=== PATIENT | male | born 1965 | race Caucasian/White ===

== ENCOUNTER 2023-07-26 12:31 | Emergency (ER) | payer SELFPAY ==
--- NOTE | ~2023-07-26 | XR_ITS ---
EXAMINATION: XR chest 1V portable Exam Date/Time: 07/26/2023 15:00 CDT HISTORY: cp Comparison: None. RESULT: Lines, tubes, and devices: None. Lungs and pleura: Moderate mid and lower lung interstitial opacities with hazy ill-defined groundgla ss opacity. Cardiomediastinal silhouette: Stable. Other: No acute osseous or upper abdominal finding. IMPRESSION: Moderate interstitial edema. Reviewed, dictated and finalized at location [facility].
[2023-07-26 12:53] VITALS: BP 110/70; PULSE 92; RESP 20; TEMP 36.6; O2SAT 100
--- NOTE | 2023-07-26 12:58 | ECG_ITS ---
Measurements Intervals [place] Rate: 92 P: 35 DC: 161 QRS: -7 QRSD: 92 T: 42 QT: 348 QTc: 430 Interpretive Statements SINUS RHYTHM NO PREVIOUS ECG AVAILABLE FOR COMPARISON Electronically Signed On 07-26-2023 20:24:16 CDT by Shannon Emanuel M.D.
[2023-07-26 15:33] LABS: Basophils Percent Auto 0.2 % (0.2-1.2); Eosinophils Absolute Auto 0.2 K/mm3 (0-0.3); Hematocrit 43.2 % (42.0-52.0); Hemoglobin 13.7 g/dL (14.0-18.0); Immature Granulocyte Absolute 0.05 K/mm3 (0.00-0.031); Immature Granulocyte Percent A 0.6 % (0-0.5); Lymphocytes Absolute Auto 1.99 K/mm3 (0.9-3.2); Lymphocytes Percent Auto 22.6 % (18.3-44.2); Mean Corpuscular HGB Conc 31.7 g/dl (32-36); Mean Corpuscular Hemoglobin 30.6 pg (26-34); Mean Corpuscular Volume 96.4 fl (80-100); Mean Platelet Volume 9.4 fl (7.4-10.4); Monocytes Absolute Auto 0.9 K/mm3 (0.1-0.6); Monocytes Percent Auto 10.7 % (2.6-8.5); Neutrophils Absolute Auto 5.6 K/mm3 (1.3-6.7); Neutrophils Percent Auto 63.9 % (45.5-73.1); Platelet Count Result 294 k/mm3 (150-375); Red Blood Count 4.48 M/mm3 (4.6-6.20); Red Cell Distribution Width 13.2 % (11.5-14.5); White Blood Count 8.8 K/mm3 (4.5-10.0)
[2023-07-26 15:43] LABS: Anion Gap 6 mmol/L (8-16); Blood Urea Nitrogen 12 mg/dL (9-20); Carbon Dioxide 25 mmol/L (22-30); Chloride 106 mmol/L (98-107); Estimated CRCL calculation 121 ml/min; Estimated Glomerular Filt Rate > 60; Ethanol < 10 mg/dL (<10); Glucose 105 mg/dL (65-110); Potassium 3.9 mmol/L (3.4-5.0); Sodium 137 mmol/L (137-145)
[2023-07-26 15:55] LABS: Troponin I < 0.012 ng/mL (0.000-0.034)
[2023-07-26 16:41] VITALS: BP 120/86; PULSE 92; RESP 16; O2SAT 100
--- NOTE | 2023-07-26 17:32 | ED.GENADULT ---
HPI - General Adult General Chief complaint: Alcohol <Di Benavidez MD - Last Filed: 07/26/23 19:04> Stated complaint: lightheaded after librium <Di Benavidez MD - Last Filed: 07/26/23 19:04> Time Seen by Provider: 07/26/23 14:49 <Di Benavidez MD - Last Filed: 07/26/23 19:04> History of Present Illness HPI narrative: Patient sent from [place] where he was being treated for alcohol withdrawal, he has not had a drink in days, he states that before he got sent here they had given him a bunch of pills 1 of which was Librium, and it made him very sleepy. He is endorsing some chest discomfort. He feels like he cannot walk. <Di Benavidez MD - Last Filed: 07/26/23 19:04> Related Data Allergies/adverse reactions: Allergies Allergy/AdvReac Type Severity Reaction Status Date / Time No Known Allergies Allergy Verified 07/26/23 17:19 <Di Benavidez MD - Last Filed: 07/26/23 19:04> Review of Systems Review of Systems: CONST: No fever. HEENT: No sore throat C/V: No chest pain RESP: No cough GI: No nausea or vomiting : No dysuria. M/S: No joint pain. SKIN: No rash. NEURO: Sleepy PSYCH: [No depression] <Di Benaivdez MD - Last Filed: 07/26/23 19:04> Exam Narrative: EXAMINATION OF ORGAN SYSTEMS/BODY AREAS: Constitutional: Vital signs per nursing GENERAL:[No acute distress, non-toxic appearing.] HEAD: Normal with no signs of head trauma. EYES: EOMI, conjunctiva normal ENT: Hearing grossly intact LUNGS: Nonlabored breathing. HEART: [Regular rate and rhythm] ABD: [Soft], [nontender to palpation] EXT: Normal range of motion SKIN: [No rashes or lesions.] NEURO: [Sleepy and mumbling. No gross focal sensory or strength deficits.] PSYCH: Normal affect <Di Benavidez MD - Last Filed: 07/26/23 19:04> Course Course Emergency Course: On reassessment patient is resting comfortably. No acute distress, notes that he feels much better at this time, ambulating without difficulty, tolerating p.o. Patient informed of results. Discussed plan for discharge back to [place] with strict return precautions. Patient demonstrated understanding and agreement plan of care. The patient has remained stable throughout the entire ED visit. Counseled patient regarding diagnostic results and potential diagnosis. Anticipatory guidance provided. Patient instructed to follow up with PCP within 1 week. Patient counseled on: false reassurance from an emergency department evaluation; no current evidence of a medical emergency; return immediately for any new, recurrent, worsening, concerning, or refractory symptoms. Outpatient medications discussed with the patient. Additional verbal and printed discharge instructions were given and discussed with the patient. Patient verbally acknowledges understanding of condition and discharge instructions. All questions were answered to the patient's satisfaction. Patient is in agreement with the plan of care. The patient is stable for discharge and was discharged without incident. <Juan Monae DO - Last Filed: 07/26/23 22:49> Vital Signs Vital signs: Vital Signs Temperature 97.8 F 07/26/23 12:53 Pulse Rate 92 07/26/23 12:53 Respiratory Rate 20 07/26/23 12:53 Blood Pressure 110/70 07/26/23 12:53 Pulse Oximetry 100 07/26/23 12:53 Oxygen Delivery Room Air 07/26/23 12:53 Temperature 97.8 F 07/26/23 12:53 Pulse Rate 87 07/26/23 22:03 Respiratory Rate 16 07/26/23 22:03 Blood Pressure 104/80 07/26/23 22:03 Pulse Oximetry 96 07/26/23 22:03 Oxygen Delivery Room Air 07/26/23 12:53 <Di Benavidez MD - Last Filed: 07/26/23 19:04> Vital Signs Temperature 97.8 F 07/26/23 12:53 Pulse Rate 92 07/26/23 12:53 Respiratory Rate 20 07/26/23 12:53 Blood Pressure 110/70 07/26/23 12:53 Pulse Oximetry 100 07/26/23 12:53 Oxygen Delivery Room Air 07/26/23 12:53 Temperature 97.8 F 07/26/23 12:53 Pulse
[2023-07-26 18:24] VITALS: BP 111/84; PULSE 97; RESP 18; O2SAT 100
[2023-07-26 18:31] LABS: Influenza A QL RT-PCR Negative (Negative); Influenza B QL RT-PCR Negative (Negative); RSV RNA, RT-PCR Negative (Negative); SARS-CoV-2 RNA PCR Negative (Negative)
[2023-07-26 19:33] VITALS: BP 112/84; PULSE 90; RESP 20; O2SAT 100
[2023-07-26 22:03] VITALS: BP 104/80; PULSE 87; RESP 16; O2SAT 96
== END 2023-07-27 ==
PROVIDERS: Emergency Medicine; Emergency Provider Student in an Organized Health Care Education/Training Program
DX: R53.83 Other fatigue (principal); T42.4X5A Adverse effect of benzodiazepines, initial encounter; Z20.822 Contact with and (suspected) exposure to COVID-19; J81.1 Chronic pulmonary edema
CPT/HCPCS: 36415; 71045; 80048; 80307; 84484; 85025; 87637; 93005; 99284